=== PATIENT | female | born 1975 | race Caucasian/White ===

== ENCOUNTER 2016-04-22 17:31 | Emergency (ER) | payer MEDICAID ==
[~2016-04-22] VITALS: Wt 80.0 kg
[~2016-04-22 17:31] MED LIST: NO MEDS TAKEN
[2016-04-22 19:28] LABS: ADD UMIC YES; URINE BILIRUBIN (Dip) NEGATIVE (NEGATIVE); URINE BLOOD (Dip) TRACE (NEGATIVE); URINE COLOR LT. YELLOW (YELLOW); URINE GLUCOSE (Dip) NEGATIVE (NEGATIVE); URINE KETONES (Dip) NEGATIVE (NEGATIVE); URINE LEUKOCYTE ESTERASE (Dip) NEGATIVE (NEGATIVE); URINE NITRITE (Dip) NEGATIVE (NEGATIVE); URINE TOTAL PROTEIN (Dip) NEGATIVE (NEGATIVE); URINE UROBILINOGEN (Dip) 0.2 E.U./dL (0.1-1.0)
[2016-04-22 19:33] LABS: ALBUMIN 4.4 g/dl (3.3-4.9); BASOPHILS % 0.5 % (0.0-2.0); EOSINOPHILS # 0.2 10^3/ul (0.0-0.5); HEMATOCRIT 39.6 % (37.0-47.0); HEMOGLOBIN 13.2 g/dl (12.0-16.0); LYMPHOCYTES # 2.5 10^3/ul (0.8-2.9); LYMPHOCYTES % 32.4 % (15.0-51.0); MEAN CORPUSCULAR HEMOGLOBIN 26.1 pg (29.0-33.0); MEAN CORPUSCULAR HGB CONC 33.4 g/dl (32.0-37.0); MEAN CORPUSCULAR VOLUME 78.1 fl (82.0-101.0); MEAN PLATELET VOLUME 8.4 fl (7.4-10.4); MONOCYTE # 0.5 10^3/ul (0.3-0.9); NEUTROPHIL # 4.5 10^3/ul (1.6-7.5); NEUTROPHILS % 59.1 % (39.0-77.0); PLATELET COUNT 299 10^3/UL (140-440); POTASSIUM 3.7 mmol/L (3.5-5.1); RED BLOOD COUNT 5.07 10^6/ul (4.20-5.40); RED CELL DISTRIBUTION WIDTH 14.8 % (11.5-14.5); UNCORRECTED WBC 7.7 10^3/ul (4.8-10.8); WHITE BLOOD COUNT 7.7 10^3/ul (4.8-10.8)
[2016-04-22 19:36] LABS: ALBUMIN/GLOBULIN RATIO 1.1; BILIRUBIN,INDIRECT 0.2 mg/dl (0-1.1); BILIRUBIN,TOTAL 0.2 mg/dl (0.2-1.3); CALCIUM 9.3 mg/dl (8.4-10.2); CREATININE 0.66 mg/dl (0.44-1.00); TOTAL PROTEIN 8.4 g/dl (6.1-8.1)
[2016-04-22 19:41] LABS: CONDITION 1; LH ANALYZER COMMENTS 1
[2016-04-22 19:47] LABS: SQUAMOUS EPITHELIAL CELL,UR FEW; URINE RBCS 0-2 /HPF (0)
[2016-04-22] MEDS ORDERED: HYDR-906 PO (20:04)
[2016-04-22] MEDS ORDERED: IBUP-1542 PO (20:04)
--- NOTE | 2016-04-22 20:11 | RADRPT ---
PROCEDURE: XR right rib series. CLINICAL INDICATION: Right rib pain. TECHNIQUE: Three views of the right rib cage are available for review COMPARISON: None available FINDINGS: No acute fracture or dislocation is seen. No radiopaque foreign body is identified. The visualized portions of the underlying lung is clear. IMPRESSION: 1. No acute fracture of right rib cage x-ray series. RPTAT: QQ .Otoniel Miller MD, Date Time Electronically viewed and signed by .Otoniel Miller MD, on 04/22/2016 20:10 .N/
--- NOTE | 2016-04-22 20:12 | ERD ---
ER Documentation Chief Complaint Date/Time DATE: 04/22/16 TIME: 20:10 Chief Complaint right side abdominal pain for 2 days. no n/v/d. no dysurria HPI This is a 48-year-old female presents to the ER with right-sided abdominal pain for the last 2 days. Patient denies any trauma. She denies any chest pain or shortness of breath. Patient denies any nausea vomiting or diarrhea she denies fevers or chills. Pain is described as throbbing in quality it is worse whenever she moves or breathes in. She has not tried anything for the pain. ROS 12 point review of systems was done, all negative except per HPI. Medications Home Meds Active Scripts Hydrocodone/Acetaminophen (Hudson 5-325 Tablet) 1 Each Tablet, 1 TAB PO Q6H Y for PAIN, #20 TAB Prov:JAZ MCCRARY 04/22/16 Ibuprofen* (Motrin*) 600 Mg Tab, 600 MG PO Q6, #30 TAB Prov:JAZ MCCRARY 04/22/16 Reported Medications [No Meds Taken] No Conflict Check 11/11/11 Allergies Allergies: Coded Allergies: No Known Allergy (Unverified , 11/11/11) PMhx/Soc Medical and Surgical Hx: pt denies Medical Hx History of Surgery: Yes ( x 1 ) Anesthesia Reaction: No Hx Neurological Disorder: No Hx Respiratory Disorders: No Hx Cardiac Disorders: No Hx Psychiatric Problems: No Hx Miscellaneous Medical Probl: No Hx Alcohol Use: No Hx Substance Use: No Hx Tobacco Use: No Smoking Status: Never smoker Physical Exam Vitals Vital Signs Date Time Temp Pulse Resp B/P Pulse Ox O2 Delivery O2 Flow Rate FiO2 04/22/16 17:59 98.6 99 20 165/85 100 Physical Exam GENERAL: The patient is well developed and appropriate for usual state of health , in no apparent distress. HEENT: Atraumatic. CHEST: Clear to auscultation bilaterally. There are no rales, wheezes or rhonchi. HEART: Regular rate and rhythm. No murmurs, clicks, rubs or gallops. ABDOMEN: Soft, and nondistended. Good bowel sounds. No rebound or guarding. No gross peritonitis. No gross organomegaly or masses. No Acevedo sign or McBurney point tenderness. ttp in the RUQ and to the right ribcage BACK: No midline or flank tenderness. EXTREMITIES: Full range of motion. Grossly neurovascularly intact. NEURO: Alert and oriented. Result Diagram: 04/22/16189904/22/161899 Results 24 hrs Laboratory Tests Test 04/22/16 18:51 04/22/16 19:00 Urine Bilirubin NEGATIVE Urine Clarity CLEAR Urine Color LT. YELLOW Urine Glucose NEGATIVE% Urine Hemoglobin TRACE Urine Ketones NEGATIVE Urine Leukocyte Esterase NEGATIVE Urine Microscopic RBC 0-2/HPF Urine Microscopic WBC 0-2/HPF Urine Nitrite NEGATIVE Urine Specific Hi Hat 1.010 Urine Squamous Epithelial Cells FEW Urine Total Protein NEGATIVE Urine Urobilinogen 0.2 E.U./dL Urine pH 6.5 Alanine Aminotransferase (ALT/SGPT) 60IU/L Albumin 4.4g/dl Albumin/Globulin Ratio 1.10 Alkaline Phosphatase 114IU/L Anion Gap 18 Aspartate Amino Transf (AST/SGOT) 39IU/L Basophils # 0.010^3/ul Basophils % 0.5% Blood Morphology Comment Blood Urea Nitrogen 7mg/dl Calcium Level 9.3mg/dl Carbon Dioxide Level 27mmol/L Chloride Level 102mmol/L Creatinine 0.66mg/dl Direct Bilirubin 0.00mg/dl Eosinophils # 0.210^3/ul Eosinophils % 2.0% Globulin 4.00g/dl Glucose Level 87mg/dl Hematocrit 39.6% Hemoglobin 13.2g/dl Indirect Bilirubin 0.2mg/dl Lipase 84U/L Lymphocytes # 2.510^3/ul Lymphocytes % 32.4% Mean Corpuscular Hemoglobin 26.1pg Mean Corpuscular Hemoglobin Concent 33.4g/dl Mean Corpuscular Volume 78.1fl Mean Platelet Volume 8.4fl Monocytes # 0.510^3/ul Monocytes % 6.0% Neutrophils # 4.510^3/ul Neutrophils % 59.1% Nucleated Red Blood Cells # 0.010^3/ul Nucleated Red Blood Cells % 0.0/100WBC Platelet Count 32919^3/UL Potassium Level 3.7mmol/L Red Blood Count 5.0710^6/ul Red Cell Distribution Width 14.8% Sodium Level 143mmol/L Total Bilirubin 0.2mg/dl Total Protein 8.4g/dl White Blood Count 7.710^3/ul Procedures/MDM Differential Diagnosis: GERD, gastritis, peptic ulcer disease, pancreatitis, cholecystitis, choledocholithiasis, biliary colic, cholangitis, Vauv-Hhfh-Lexges , ACS/MO, Pnuemonia. I am awaiting gallbladder ultrasound results and xray results, however patient's bloodwork is normal. Patient is afebrile and well appearing. If test are normal she will be sent home with pain control. Please refer to other's provider note for further management and care. Departure Diagnosis: Primary Impression: Abdominal pain Condition: Stable Patient Instructions: Abdominal Pain Additional Instructions: Llame al doctor MAKERRI y dorcas gladys STEVE PARA DENTRO DE 1-2 SEALS.Dgale a la secretaria que nosotros le instruimos hacer esta steve.Avise o llame si bueno condicin se empeora antes de la steve. Regresa aqui si peor o no mejor. JAZ MCCRARY Apr 22, 2016 20:12
--- NOTE | 2016-04-22 20:26 | RADRPT ---
PROCEDURE: US Abdomen (right upper quadrant). CLINICAL INDICATION: Abdominal pain. TECHNIQUE: Multiple real-time longitudinal and transverse images of the right upper quadrant of th e abdomen were acquired utilizing a curved array transducer. Images were reviewed on a high-resoluti on PACS workstation. COMPARISON: None FINDINGS: The liver is normal in size but increased in echogenicity indicative of fatty infiltration without f ocal mass or intrahepatic biliary dilatation. The gallbladder is unremarkable. There is no pericho lecystic fluid or gallbladder wall thickening or gallstones. No intra or extrahepatic biliary dilat ation is seen. The common bile duct measures 3.1 mm in maximal dimension. The visualized portions of the pancreas are unremarkable with obscuration of the tail of the pancreas. No free fluid is eve ntified. The right kidney measures 9.1 cm in length. There is normal echogenicity within the right kidney. There is no perinephric fluid collection. No hydronephrosis, mass, or calculus is seen. IMPRESSION: 1. Hepatic steatosis. 2. The pancreas is partially visualized. 3. Otherwise unremarkable right upper quadrant ultrasound. RPTAT: QQ .Otoniel Miller MD, MD Date Time Electronically viewed and signed by .Otoniel Miller MD, MD on 04/22/2016 20:26 .N/
[2016-04-22 20:37] VITALS: BP 168/85; PULSE 98; RESP 20; TEMP 98.6
== END 2016-04-22 20:40 | disposition home or self-care (01) ==
LOC: FTE 17:31
DX: R10.11 Right upper quadrant pain (principal)
CPT/HCPCS: 36415; 71100; 76705; 80053; 81001; 83690; 85025; Z7502; 81003

== ENCOUNTER 2016-06-28 19:29 | Emergency (ER) | payer MEDICAID ==
[~2016-06-28] VITALS: Ht 157.5 cm; Wt 92.0 kg
[~2016-06-28 19:29] MED LIST changes: +HYDR-906 PO; +IBUP-1542 PO
[2016-06-28 19:47] VITALS: Ht 157.5 cm; Wt 92.0 kg
[2016-06-28] MEDS ORDERED: KETOROLAC 30 MG INJ IM STA (21:17)
[2016-06-28] MEDS ORDERED: DIPHENHYDRAMINE 50 MG INJ IM ONE (21:30)
[2016-06-28] MEDS ORDERED: BEN25 PO (21:38)
[2016-06-28] MEDS ORDERED: LORA10TA3 PO (21:38)
[2016-06-28] MEDS ORDERED: FAMO-18 PO (21:38)
[2016-06-28] MEDS ORDERED: POLY10DR BOTH EYES (21:38)
--- NOTE | 2016-06-28 21:53 | ERD ---
ER Documentation Chief Complaint Date/Time DATE: 06/28/16 TIME: 21:48 Chief Complaint redness/itching both eyes x 1 hour HPI This 41-year-old female presents with 90 minutes of quick onset itching and redness in her eyes. She has no decreased vision. She also started to develop a mild headache since then. She suffered no trauma to the eye and does not believe there is any chance that she got sudden dust or particular matter in the eyes. She does have small children but has not noted any joint divided them lately. ROS All systems reviewed and are negative except as per history of present illness. Medications Home Meds Active Scripts Famotidine* (Pepcid*) 20 Mg Tablet, 20 MG PO BID, #8 TAB Prov:ROBERTO ALVAREZ 06/28/16 Polymyxin/Trimethoprim* (Polytrim* Eye Drops) 10 Ml Drops, 1 DROP BOTH EYES QID for 7 Days, EA Prov:KIMROBERTO 06/28/16 Loratadine* (Loratadine*) 10 Mg Tablet, 10 MG PO DAILY, #20 TAB Prov:KIMROBERTO 06/28/16 Diphenhydramine Hcl* (Benadryl*) 25 Mg Cap, 25 MG PO Q6 Y for ITCHING/RASH, #10 TAB Prov:KIMROBERTO 06/28/16 Hydrocodone/Acetaminophen (Sherman 5-325 Tablet) 1 Each Tablet, 1 TAB PO Q6H Y for PAIN, #20 TAB Prov:HERMANNJAZ HEBERT C 04/22/16 Ibuprofen* (Motrin*) 600 Mg Tab, 600 MG PO Q6, #30 TAB Prov:HERMANNJAZ C 04/22/16 Reported Medications [No Meds Taken] No Conflict Check 11/11/11 Allergies Allergies: Coded Allergies: No Known Allergy (Unverified , 06/28/16) PMhx/Soc History of Surgery: Yes (c/s x2 ) Anesthesia Reaction: No Hx Neurological Disorder: No Hx Respiratory Disorders: No Hx Cardiac Disorders: No Hx Psychiatric Problems: No Hx Miscellaneous Medical Probl: No Hx Alcohol Use: No Hx Substance Use: No Hx Tobacco Use: No Physical Exam Vitals Vital Signs Date Time Temp Pulse Resp B/P Pulse Ox O2 Delivery O2 Flow Rate FiO2 06/28/16 19:47 98.0 83 20 162/91 99 Physical Exam Const: [] No distress Head: Atraumatic Eyes: Mildly injected conjunctiva with prelimbic sparing, ophthalmoscope exam within normal limits, lesions visible., EOMI, PERRLA ENT: Normal External Ears, Nose and Mouth. Skin: No petechiae or rashes Neur: Awake and alert and oriented 3, cranial 2 through 12 intact, no cerebellar deficits, normal gait Results 24 hrs Current Medications Medications (Trade) Dose Ordered Sig/Sue Route PRN Reason Start Time Stop Time Status Last Admin Dose Admin Diphenhydramine HCl (Benadryl) 25 mg ONCE ONCE IM 06/28/16 21:30 06/28/16 21:31 DC 06/28/16 21:29 Ketorolac Tromethamine (Toradol) 30 mg ONCE STAT IM 06/28/16 21:17 06/28/16 21:18 DC 06/28/16 21:30 Procedures/MDM His son onset this is likely allergic conjunctivitis. Patient was given the Benadryl emergency room because of her mild gradual onset headache she was also given a Toradol injection. She experienced relief while still in the emergency room. Very low suspicion for subarachnoid hemorrhage or other emergent causes of headache. Normal neuro exam. Given the history and physical exam have very low suspicion for bilateral simultaneous foreign bodies or abrasions in the eye. Because she does have small children does not have history of allergies I am going to cover her with Polytrim eyedrops as well for possible infectious conjunctivitis. Giving her primary care follow up instructions to see an dermatologist the condition has not resolved in the next few days. Return precautions to the ER if symptoms continue. Departure Diagnosis: Primary Impression: Allergic conjunctivitis Additional Impression: Acute headache Condition: Stable Patient Instructions: Conjunctivitis, Allergic, Headache, Unspecified Referrals: COMMUNITY CLINICS YOU HAVE RECEIVED A MEDICAL SCREENING EXAM AND THE RESULTS INDICATE THAT YOU DO NOT HAVE A CONDITION THAT REQUIRES URGENT TREATMENT IN THE EMERGENCY DEPARTMENT. FURTHER EVALUATION AND TREATMENT OF YOUR CONDITION CAN WAIT UNTIL YOU ARE SEEN IN YOUR DOCTORS OFFICE WITHIN THE NEXT 1-2 DAYS. IT IS YOUR RESPONSIBILITY TO MAKE AN APPOINTMENT FOR FOLOW-UP CARE. IF YOU HAVE A PRIMARY DOCTOR --you should call your primary doctor and schedule an appointment IF YOU DO NOT HAVE A PRIMARY DOCTOR YOU CAN CALL OUR PHYSICIAN REFERRAL HOTLINE AT IF YOU CAN NOT AFFORD TO SEE A PHYSICIAN YOU CAN CHOSE FROM THE FOLLOWING [facility] [address] [facility] [address] [facility] [address] [facility] [address] [facility]. [facility] [address] [facility]. [facility]. [address] Additional Instructions: Llame al doctor MAANA y dorcas gladys STEVE PARA DENTRO DE 2-3 SEALS. Consigue un referral para un OPTHOMOLOGIST entre de gladys semana. Dgale a la secretaria que nosotros le instruimos hacer esta steve.Avise o llame si bueno condicin se empeora antes de la steve. Regresa aqui si peor o no mejor. ROBERTO ALVAREZ DO Jun 28, 2016 21:53
[2016-06-28 22:15] VITALS: BP 150/85; PULSE 73; RESP 20; TEMP 98.6
== END 2016-06-28 22:16 | disposition home or self-care (01) ==
LOC: FTE 19:29
DX: H10.13 Acute atopic conjunctivitis, bilateral (principal); R51 Headache
CPT/HCPCS: 96372; J1200; J1885; Z7502

== ENCOUNTER 2016-07-23 17:59 | Emergency (ER) | payer MEDICAID ==
[~2016-07-23] VITALS: Ht 160 cm; Wt 93.5 kg
[~2016-07-23 17:59] MED LIST changes: +BEN25 PO; +FAMO-18 PO; +LORA10TA3 PO; +POLY10DR BOTH EYES
[2016-07-23 18:20] VITALS: Ht 160 cm; Wt 93.5 kg
[2016-07-23] MEDS ORDERED: BACITUD TOP (19:06)
[2016-07-23] MEDS ORDERED: CETI10CA PO (19:06)
--- NOTE | 2016-07-23 19:13 | ERD ---
ER Documentation Chief Complaint Date/Time DATE: 07/23/16 TIME: 19:09 Chief Complaint pt has bi-lateral eye redness itchiness , denies pain HPI Is a 41-year-old female who presents to the emergency department today complaining of bilateral eye redness and itchiness on her eyelids for the past month. Patient states she was seen here in the past that the medication she was given did not help her. Denies any fevers or chills, blurred vision, vision changes, eye pain. ROS All systems reviewed and are negative except as per history of present illness. Medications Home Meds Active Scripts Cetirizine Hcl* (Zyrtec*) 10 Mg Capsule, 10 MG PO DAILY, #14 TAB.CHEW Prov:YONY STEEL PA-C 07/23/16 Bacitracin* (Bacitracin Oint (UD)*) 1 Applic Oint, 1 APPLIC TOP ONCE, #30 PKT APPLY TO Prov:YONY STEEL PA-C 07/23/16 Famotidine* (Pepcid*) 20 Mg Tablet, 20 MG PO BID, #8 TAB Prov:KIMROBERTO DO 06/28/16 Polymyxin/Trimethoprim* (Polytrim* Eye Drops) 10 Ml Drops, 1 DROP BOTH EYES QID for 7 Days, EA Prov:KIMROBERTO DO 06/28/16 Loratadine* (Loratadine*) 10 Mg Tablet, 10 MG PO DAILY, #20 TAB Prov:KIMROBERTONEVAEH HERMAN 06/28/16 Diphenhydramine Hcl* (Benadryl*) 25 Mg Cap, 25 MG PO Q6 Y for ITCHING/RASH, #10 TAB Prov:KIMROBERTONEVAEH HERMAN 06/28/16 Hydrocodone/Acetaminophen (Marion 5-325 Tablet) 1 Each Tablet, 1 TAB PO Q6H Y for PAIN, #20 TAB Prov:HERMANNJAZ HEBERT C 04/22/16 Ibuprofen* (Motrin*) 600 Mg Tab, 600 MG PO Q6, #30 TAB Prov:HERMANNJAZ C 04/22/16 Reported Medications [No Meds Taken] No Conflict Check 11/11/11 Allergies Allergies: Coded Allergies: No Known Allergy (Unverified , 06/28/16) PMhx/Soc History of Surgery: Yes (c/s x2 ) Anesthesia Reaction: No Hx Neurological Disorder: No Hx Respiratory Disorders: No Hx Cardiac Disorders: No Hx Psychiatric Problems: No Hx Miscellaneous Medical Probl: No Hx Alcohol Use: No Hx Substance Use: No Hx Tobacco Use: No Physical Exam Vitals Vital Signs Date Time Temp Pulse Resp B/P Pulse Ox O2 Delivery O2 Flow Rate FiO2 07/23/16 18:20 98.6 92 18 160/94 99 Physical Exam Const: No acute distress Head: Atraumatic Eyes: Normal Conjunctiva. PERRLA. EOM intact. Bilateral upper eyelids with localized erythema and dermatitis ENT: Normal External Ears, Nose and Mouth. Neck: Full range of motion..~ No meningismus. Resp: Clear to auscultation bilaterally Cardio: Regular rate and rhythm, no murmurs Abd: Soft, non tender, non distended. Normal bowel sounds Skin: Dermatitis bilateral upper eyelid Neur: Awake and alert Psych: Normal Mood and Affect Procedures/MDM This 41-year-old female who presents the emergency department today for bilateral eye redness and itchiness on her upper eyelids. Patient was seen here in the emergency department at the end of June and was given a steroid injection as well as injection for pain and was discharged home with Benadryl. Patient appear to be having an allergic reaction at that time. Patient indicated that the Benadryl has not helped her and her symptoms have not improved. On physical exam patient appears to have dermatitis on her bilateral upper eyelids. There is no purulent drainage. There is no warmth. Patient does not have any pain. She has no pain or redness inside of her eye. Patient symptoms at this time most consistent with dermatitis possibly allergy related. I did give the patient a prescription for Zyrtec. I also give the patient a prescription for bacitracin ointment after discussing the patient with Dr. Byrne. I did also consider that the patient does wax her eyebrows and this may be an irritation from the wax that was placed on her eyebrows. I have explained to the patient that this is likely an allergy related skin problem and that she does need to see agricultural systems specialist. Low suspicion for orbital cellulitis, preseptal cellulitis, conjunctivitis. Patient indicated that she does not have a primary care doctor and I gave her a list of referrals for community clinics as well as agricultural systems specialist. Patient understood. At this time the patient is stable for discharge and outpatient management. Patient should follow up with their PCP in the next 1-2 days. They may return to the emergency department sooner for any persistent or worsening of symptoms. Patient understood and agreed with the plan. Departure Diagnosis: Primary Impression: Eye problem Additional Impression: Dermatitis Condition: Fair Patient Instructions: Dermatitis, Non-Specific Referrals: SANDER RODRIGUEZ MD,PHILOMENA BERRY,TAMEKA ESCALONA,SENAIT SINHA,SABA SANTOS,NATHALIA MADRID,[facility] Usted se rose hecho un examen mdico de control que le indica que no est en gladys condicin que requiera tratamiento urgente en el Departamento de Emergencia. Un estudio ms profundo y el tratamiento de bueno condicin pueden esperar sin ningn riesgo hasta que usted sea atendida/o en el consultorio de bueno mdico o gladys cl shad. Es responsabilidad suya arreglar gladys steve para el seguimiento del paco. MANEJO DE CONDICIONES NO URGENTES EN EL FUTURO 1) Si usted tiene un mdico de atencin primaria: Usted debera llamar a bueno mdico de atencin primaria antes de venir al departamento de emergencia. Despus de las horas de consultorio, bueno doctor o bueno asociado/a est disponible por telfono. El mdico o enfermero de celi en el servicio telefnico puede asesorarle por donta medio para atender el problema, o paco contrario se puede programar gladys steve. 2) Si usted no tiene un mdico de atencin primaria: Llame al mdico o condado institucions de referencia que aparece abajo zeinab las horas de consultorio para hacer gladys steve para que le vean. SI USTED NO PUEDE PAGAR PARA WILIAN UN MEDICO puede ir a: [facility] [address] [place] [address] [facility] [address] [place] [address] [facility] [address] [place] [address] [facility] [address] [place], [place] [id number] Additional Instructions: Llame al doctor MAANA y dorcas gladys STEVE PARA DENTRO DE 1-2 SEALS.Dgale a la secretaria que nosotros le instruimos hacer esta steve.Avise o llame si bueno condicin se empeora antes de la steve. Regresa aqui si peor o no mejor. Make an appointment with agricultural systems specialist Use bacitracin on eyelids. Do not put in eye. [facility] YONY STEEL PA-C Jul 23, 2016 19:13
== END 2016-07-24 07:15 | disposition home or self-care (01) ==
LOC: FTE 17:59 → E/R 07-24 07:15
DX: H57.8 Other specified disorders of eye and adnexa (principal); H01.134 Eczematous dermatitis of left upper eyelid; H01.131 Eczematous dermatitis of right upper eyelid
CPT/HCPCS: 99283

== ENCOUNTER 2018-06-20 10:10 | Emergency (ER) | payer MEDICAID ==
[~2018-06-20] VITALS: Ht 162.6 cm; Wt 94.6 kg
[~2018-06-20 10:10] MED LIST changes: +BACITUD TOP; +CETI10CA PO; -FAMO-18 PO; +FAMO-96 PO; +HYDR-4011 PO; -HYDR-906 PO
[2018-06-20 10:24] VITALS: BP 159/94; PULSE 93; RESP 18; Ht 162.6 cm; Wt 94.6 kg
[2018-06-20] MEDS ORDERED: KETOROLAC 60 MG INJ IM STA (13:47)
[2018-06-20] MEDS ORDERED: ACETAMINOPHEN 500 MG TAB PO STA (13:47)
[2018-06-20] MEDS ORDERED: IBUP-1542 PO (14:09)
[2018-06-20] MEDS ORDERED: ASPI1TAB31 PO (14:09)
--- NOTE | 2018-06-20 14:13 | ERD ---
ER Documentation Chief Complaint Chief Complaint head pain x 3 days HPI This is a 43-year-old female with a nonsignificant past medical history presents ED with complaints of right-sided temporal headache that is been present for the past 3 days. Patient describes the headache as pulsating and rates it at a 6 out of 10. Patient states that she has had similar headaches in the past. Patient also admits to nausea with a couple episodes of nonbilious nonbloody vomiting. Denies fever, chills, blurry vision, changes in medication, chest pain, shortness breath, trouble breathing, weakness, dizziness, lightheadedness and all other symptoms. Patient states that she normally takes Advil for her h eadache but she has not had any at home to take it. ROS All systems reviewed and are negative except as per history of present illness. Medications Home Meds Active Scripts Ibuprofen* (Motrin*) 600 Mg Tab, 600 MG PO Q6, #30 TAB Prov:CASPER RODRIGUEZ PA-C 06/20/18 Aspirin/Acetaminophen/Caffeine (Excedrin Migraine Caplet) 1 Each Tablet, 1 EACH PO Q12, #20 TAB Prov:CASPER RODRIGUEZ PA-C 06/20/18 Cetirizine Hcl* (Zyrtec*) 10 Mg Capsule, 10 MG PO DAILY, #14 TAB.CHEW Prov:YONY STEEL PA-C 07/23/16 Bacitracin* (Bacitracin Oint (UD)*) 1 Applic Oint, 1 APPLIC TOP ONCE, #30 PKT APPLY TO Prov:YONY STEEL PA-C 07/23/16 Famotidine* (Pepcid*) 20 Mg Tablet, 20 MG PO BID, #8 TAB Prov:ROBERTO ALVAREZ DO 06/28/16 Polymyxin/Trimethoprim* (Polytrim* Eye Drops) 10 Ml Drops, 1 DROP BOTH EYES QID for 7 Days, EA Prov:ROBERTO ALVAREZ DO 06/28/16 Loratadine* (Loratadine*) 10 Mg Tablet, 10 MG PO DAILY, #20 TAB Prov:ROBERTO ALVAREZ DO 06/28/16 Diphenhydramine Hcl* (Benadryl*) 25 Mg Cap, 25 MG PO Q6 PRN for ITCHING/RASH, #10 TAB Prov:ROBERTO ALVAREZ DO 06/28/16 Hydrocodone/Acetaminophen ([place] 5-325 Tablet) 1 Each Tablet, 1 TAB PO Q6H PRN for PAIN, #20 TAB Prov:JAZ MCCRARY 04/22/16 Ibuprofen* (Motrin*) 600 Mg Tab, 600 MG PO Q6, #30 TAB Prov:JAZ MCCRARY 04/22/16 Reported Medications [No Meds Taken] No Conflict Check 11/11/11 Allergies Allergies: Coded Allergies: No Known Allergy (Unverified , 06/28/16) PMhx/Soc Medical and Surgical Hx: pt denies Medical Hx History of Surgery: Yes (c/s x2 ) Anesthesia Reaction: No Hx Neurological Disorder: No Hx Respiratory Disorders: No Hx Cardiac Disorders: No Hx Psychiatric Problems: No Hx Miscellaneous Medical Probl: No Hx Alcohol Use: No Hx Substance Use: No Hx Tobacco Use: No Smoking Status: Never smoker FmHx Family History: No diabetes Physical Exam Vitals Vital Signs Date Temp Pulse Resp B/P (MAP) Pulse Ox O2 O2 Flow FiO2 Time Delivery Rate 06/20/18 98.7 93 18 159/94 98 10:24 (115) Physical Exam Physical Exam Vitals signs: Reviewed by me. General: Well developed, well nourished, in no acute distress. Patient is awake and alert. Head: Normocephalic, atraumatic. Eyes: Normal conjunctiva, Pupils PERRLA, EOM intact grossly ENT: Pharynx is clear, Moist mucous membranes, external ears, nose and mouth normal Neck: Supple, no masses, lymphadenopathy or JVD Respiratory: Clear to auscultation bilaterally with no wheezing, rhonchi, rales, no distress Cardiovascular: RRR, no murmurs, rubs, or gallops Abdominal: Soft, non-tender, non-distended, no peritoneal signs Neurologic: Alert and oriented, moving all extremities, normal speech, no focal weakness, no cerebellar signs. Normal mentation Skin: warm and dry, No rash Psych: Normal mood Results 24 hrs Laboratory Tests Test 06/20/18 13:58 POC Beta HCG, Qualitative NEGATIVE Current Medications Medications Dose Sig/Sue Start Time Status Last (Trade) Ordered Route PRN Stop Time Admin Dose Reason Admin 1,000 mg ONCE STAT 06/20/18 DC 06/20/18 Acetaminophen PO 13:47 14:07 (Tylenol 3/17/19 13:50 Tab) Ketorolac 60 mg ONCE STAT 06/20/18 DC 06/20/18 Tromethamine IM 13:47 14:08 (Toradol) 06/20/18 13:50 Procedures/MDM ER COURSE: The patient was given Toradol and Tylenol The medication was well tolerated and the patient reports improvement in symptoms. The patient was stable throughout ED course. I kept the patient and/or family informed of laboratory and diagnostic imaging results throughout the emergency room course. The patient was promptly evaluated and a treatment plan was devised based on H&P and other data. This plan was discussed with the patient who agreed and had no further questions or concerns prior to discharge. MEDICAL DECISION MAKING: This is a 43-year-old female presents ED with headache times 3 days. The patient's headache is unlikely related to serious etiology. The patient does not exhibit any clinical signs or symptoms, and has no risk factors to suggest headache etiology such as subarachnoid hemorrhage, acute vertebral or carotid dissection, intracranial mass, epidural, subdural hematoma, dural venous sinus thrombosis, giant cell arteritis, CVA, encephalitis, meningitis, or pseudotumor cerebri. Patient's vitals are stable and patient can be managed with close outpatient follow-up. Patient was advised to follow-up with her primary care in the next 48 hours. Return to ED with any worsening symptoms. DISPOSITION PLAN: We discussed follow up with the patient's primary care doctor within 24 to 48 hours. Patient counseled regarding my diagnostic impression and care plan. Prior to discharge all questions answered. Pt agrees with treatment plan and understands strict return precautions. Precautionary instructions provided including instructions to return to the ER if not improving or for any worsening or changing symptoms or concerns. SPECIALIST FOLLOW UP RECOMMENDED: None Patient has been advised to follow up with primary care in 1-2 days. Disclaimer: Inadvertent spelling and grammatical errors are likely due to EHR/dictation software use and do not reflect on the overall quality of patient care. Also, please note that the electronic time recorded on this note does not necessarily reflect the actual time of the patient encounter. Blood Pressure Assessment: Patient's blood pressure was elevated (>120/80) but appears stable without evidence of hypertension emergency or urgency. The patient was counseled about the risks of hypertension and urged to pursue outpatient monitoring and therapy within a week with their primary care physician. Departure Diagnosis: Primary Impression: Headache Headache type: unspecified Headache chronicity pattern: acute headache Intractability: not intractable Qualified Codes: R51 - Headache Condition: Stable Patient Instructions: What Are Migraine and Tension Headaches?, Self-Care for Headaches Referrals: [facility] Usted se rose hecho un examen mdico de control que le indica que no est en gladys condicin que requiera tratamiento urgente en el Departamento de Emergencia. Un estudio ms profundo y el tratamiento de bueno condicin pueden esperar sin ningn riesgo hasta que usted sea atendida/o en el consultorio de bueno mdico o gladys clnica. Es responsabilidad suya arreglar gladys yoel para el seguimiento del paco. MANEJO DE CONDICIONES NO URGENTES EN EL FUTURO 1) Si usted tiene un mdico de atencin primaria: Usted debera llamar a bueno mdico de atencin primaria antes de venir al departamento de emergencia. Despus de las horas de consultorio, bueno doctor o bueno asociado/a est disponible por telfono. El mdico o enfermero de celi en el servicio telefnico puede asesorarle por donta medio para atender el problema, o paco contrario se puede programar gladys yoel. 2) Si usted no tiene un mdico de atencin primaria: Llame al mdico o clnica de referencia que aparece abajo zeinab las horas de consultorio para hacer gladys yoel para que le vean. CLINICAS: [facility] [phone] [address] [facility] [phone] [address] [facility] [phone] [facility] [phone] [address] [place] [id number] [phone] [facility] [phone] [address] Additional Instructions: Paciente aconseja volver a Departamento de urgencias inmediatamente para sntomas nuevos o que empeoran . Paciente aconseja posteriores con el PCP en 1-2 barton . Paciente verbaliza la comprehensin y est de acuerdo con el tratamiento y el curso de accin. Si el paciente no tiene ninguna de atencin primaria pueden seguir con [facility] [address] [place] [address] o [facility] + [address] [address] CASPER RODRIGUEZ PA-C Jun 20, 2018 14:13
== END 2018-06-20 14:21 | disposition home or self-care (01) ==
LOC: FTE 10:10
DX: R51 Headache (principal)
CPT/HCPCS: 81025; 96372; J1885; Z7502; Z7610

== ENCOUNTER 2018-09-03 08:36 | Emergency (ER) | payer MEDICAID ==
[~2018-09-03] VITALS: Ht 167.6 cm; Wt 97.6 kg
[~2018-09-03 08:36] MED LIST changes: +ASPI1TAB31 PO
[2018-09-03 08:40] VITALS: Ht 167.6 cm; Wt 97.6 kg
[2018-09-03] MEDS ORDERED: KETOROLAC 60 MG INJ IM STA (09:10)
[2018-09-03] MEDS ORDERED: NAPR-985 PO (10:46)
--- NOTE | 2018-09-03 10:56 | ERD ---
ER Documentation Chief Complaint Chief Complaint Pain in right elbow radiates down the right arm to hand x 1 month HPI 43-year-old female patient with no significant past medical history presents ED complaining of right elbow pain that started 1 month ago that radiates to her right hand. States that she has pain to the outer portion of her right elbow. Reports that she still has full range of motion. Denies any fever, chills, nausea, vomiting, sensation loss of range of motion, increased redness or swelling. ROS All systems reviewed and are negative except as per history of present illness. Medications Home Meds Active Scripts Naproxen* (Naprosyn*) 500 Mg Tablet, 500 MG PO BID PRN for PAIN AND/OR INFLAMMATION, #30 TAB Prov:JUSTIN MAI PA-C 09/03/18 Ibuprofen* (Motrin*) 600 Mg Tab, 600 MG PO Q6, #30 TAB Prov:CASPER RODRIGUEZ PA-C 06/20/18 Aspirin/Acetaminophen/Caffeine (Excedrin Migraine Caplet) 1 Each Tablet, 1 EACH PO Q12, #20 TAB Prov:CASPER RODRIGUEZ PA-C 06/20/18 Cetirizine Hcl* (Zyrtec*) 10 Mg Capsule, 10 MG PO DAILY, #14 TAB.CHEW Prov:YONY STEEL PA-C 07/23/16 Bacitracin* (Bacitracin Oint (UD)*) 1 Applic Oint, 1 APPLIC TOP ONCE, #30 PKT APPLY TO Prov:YONY STEEL PA-C 07/23/16 Famotidine* (Pepcid*) 20 Mg Tablet, 20 MG PO BID, #8 TAB Prov:ROBERTO ALVAREZ DO 06/28/16 Polymyxin/Trimethoprim* (Polytrim* Eye Drops) 10 Ml Drops, 1 DROP BOTH EYES QID for 7 Days, EA Prov:ROBERTO ALVAREZ DO 06/28/16 Loratadine* (Loratadine*) 10 Mg Tablet, 10 MG PO DAILY, #20 TAB Prov:ROBERTO ALVAREZ DO 06/28/16 Diphenhydramine Hcl* (Benadryl*) 25 Mg Cap, 25 MG PO Q6 PRN for ITCHING/RASH, #10 TAB Prov:ROBERTO ALVAREZ DO 3/25/17 Hydrocodone/Acetaminophen ([place] 5-325 Tablet) 1 Each Tablet, 1 TAB PO Q6H PRN for PAIN, #20 TAB Prov:JAZ MCCRARY 04/22/16 Ibuprofen* (Motrin*) 600 Mg Tab, 600 MG PO Q6, #30 TAB Prov:JAZ MCCRARY 04/22/16 Reported Medications [No Meds Taken] No Conflict Check 11/11/11 Allergies Allergies: Coded Allergies: No Known Allergy (Unverified , 06/28/16) PMhx/Soc Medical and Surgical Hx: pt denies Medical Hx History of Surgery: Yes (c/s x2 ) Anesthesia Reaction: No Hx Neurological Disorder: No Hx Respiratory Disorders: No Hx Cardiac Disorders: No Hx Psychiatric Problems: No Hx Miscellaneous Medical Probl: No Hx Alcohol Use: No Hx Substance Use: No Hx Tobacco Use: No Smoking Status: Never smoker FmHx Family History: No diabetes, No coronary disease Physical Exam Vitals Vital Signs Date Temp Pulse Resp B/P (MAP) Pulse Ox O2 O2 Flow FiO2 Time Delivery Rate 09/03/18 98.4 87 18 149/88 100 08:40 (108) Physical Exam Const: [id number], well-nourished. In no acute distress. Head: Atraumatic, normocephalic Eyes: Normal Conjunctiva without injection ENT: Normal external ear, nose and mouth. Neck: Full range of motion. No meningismus. Resp: Clear to auscultation bilaterally. No wheezing, rhonchi, rales, or crackles. No accessory muscle use. No retractions. Cardio: Regular rate and rhythm, no murmurs Skin: No petechiae or rashes Back: No midline tenderness. No CVA tenderness. Ext: No cyanosis, or edema. Cap refill less than 2 seconds. Distal pulses intact bilaterally. Tenderness to palpation of the right lateral epicondyle. Full range of motion with flexion, extension, supination, pronation. No edema, erythema. No warmth to touch. Neur: Awake and alert. Normal gait and coordination. Muscle strength 5/5. Sensation intact bilaterally. Psych: Normal Mood and Affect Results 24 hrs Laboratory Tests Test 09/03/18 09:38 POC Beta HCG, Qualitative NEGATIVE Current Medications Medications Dose Sig/Sue Start Time Status Last (Trade) Ordered Route PRN Stop Time Admin Dose Reason Admin Ketorolac 60 mg ONCE STAT 09/03/18 DC 09/03/18 Tromethamine IM 09:10 09:44 (Toradol) 09/03/18 09:12 Procedures/MDM 43-year-old male patient with no significant past medical history presents ED complaining of right elbow pain that started about 1 month ago. Patient is afebrile and nontoxic-appearing. X-ray shows no evidence of fractures or dislocations. Differentials include tendonitis, lateral epicondylitis. Patient's extremity symptoms have stabilized while they have been evaluated in the department and are appropriate for outpatient follow up. No evidence of fractures, dislocations, compartment syndrome, neurologic injury, vascular injury, open joint, open fracture, tendon laceration, septic arthritis, osteomyelitis, DVT, foreign body, or other emergent conditions. Diagnosis: Right Elbow Tendonitis Discharge medications: Naproxen Follow up with primary care physician in 1-2 days. Instructed patient to return to the ED sooner for any worsening symptoms. Patient's questions were answered. Patient is hemodynamically stable. Patient understood and agreed with discharge plan. Patient discharged stable. Disclaimer: Inadvertent spelling and grammatical errors are likely due to EHR /dictation software use and do not reflect on the overall quality of patient care. Also, please note that the electronic time recorded on this note does not necessarily reflect the actual time of the patient encounter. Departure Diagnosis: Primary Impression: Right elbow tendonitis Condition: Stable Patient Instructions: Tendonitis Referrals: [facility] YOU HAVE RECEIVED A MEDICAL SCREENING EXAM AND THE RESULTS INDICATE THAT YOU DO NOT HAVE A CONDITION THAT REQUIRES URGENT TREATMENT IN THE EMERGENCY DEPARTMENT. FURTHER EVALUATION AND TREATMENT OF YOUR CONDITION CAN WAIT UNTIL YOU ARE SEEN IN YOUR DOCTORS OFFICE WITHIN THE NEXT 1-2 DAYS. IT IS YOUR RESPONSIBILITY TO MAKE AN APPOINTMENT FOR FOLOW-UP CARE. IF YOU HAVE A PRIMARY DOCTOR --you should call your primary doctor and schedule an appointment IF YOU DO NOT HAVE A PRIMARY DOCTOR YOU CAN CALL OUR PHYSICIAN REFERRAL HOTLINE AT IF YOU CAN NOT AFFORD TO SEE A PHYSICIAN YOU CAN CHOSE FROM THE FOLLOWING [facility] CLINICS [facility] [address] [facility]. [facility] [address] [facility]. [facility] [address] [facility]. [facility] [address] [facility]. [facility] [address] [facility]. [facility] [address] [facility]. [facility] YOU HAVE RECEIVED A MEDICAL SCREENING EXAM AND THE RESULTS INDICATE THAT YOU DO NOT HAVE A CONDITION THAT REQUIRES URGENT TREATMENT IN THE EMERGENCY DEPARTMENT. FURTHER EVALUATION AND TREATMENT OF YOUR CONDITION CAN WAIT UNTIL YOU ARE SEEN IN YOUR DOCTORS OFFICE WITHIN THE NEXT 1-2 DAYS. IT IS YOUR RESPONSIBILITY TO MAKE AN APPOINTMENT FOR FOLOW-UP CARE. IF YOU HAVE A PRIMARY DOCTOR --you should call your primary doctor and schedule and appointment IF YOU DO NOT HAVE A PRIMARY DOCTOR YOU CAN CALL OUR PHYSICIAN REFERRAL HOTLINE AT . IF YOU CAN NOT AFFORD TO SEE A PHYSICIAN YOU CAN CHOSE FROM THE FOLLOWING [facility] INSTITUTIONS: [facility] [address] [place] [address] [facility] [address] [place] [address] [facility] + [facility] [address] [place] [address] [facility] URGENT C[facility]/SPECIALTIES Additional Instructions: Call your primary care doctor TOMORROW for an appointment during the next 2-3 days.See the doctor sooner or return here if your condition worsens before your appointment time. JUSTIN MAI PA-C September 03, 2018 10:56
[2018-09-03 11:09] VITALS: BP 138/88; PULSE 78; RESP 19
== END 2018-09-03 11:10 | disposition home or self-care (01) ==
LOC: FTE 08:36
DX: M77.8 Other enthesopathies, not elsewhere classified (principal); Z79.82 Long term (current) use of aspirin
CPT/HCPCS: 73080; 81025; 96372; J1885; Z7502